=== PATIENT | female | born 1990 | race Caucasian/White ===

== ENCOUNTER 2020-11-23 12:40 | Outpatient (CLI) | payer BC | END 2020-11-23 13:20 | disposition home or self-care (01) | LOC: D.LDO 12:40 | PROVIDERS: ATTEND Student in an Organized Health Care Education/Training Program | DX: O24.419 Gestational diabetes mellitus in pregnancy, unspecified control (principal) ==

== ENCOUNTER 2020-11-29 16:50 | Outpatient (CLI) | payer BC | END 2020-11-29 17:29 | disposition home or self-care (01) | LOC: D.LDO 16:50 | PROVIDERS: ATTEND Obstetrics & Gynecology | DX: O24.419 Gestational diabetes mellitus in pregnancy, unspecified control (principal) ==

== ENCOUNTER 2020-12-03 10:03 | Outpatient (CLI) | payer BC ==
[2020-12-03 11:27] LABS: BILIRUBIN NEGATIVE (NEGATIVE); KETONE NEGATIVE (NEGATIVE); NITRITE NEGATIVE (NEGATIVE); UROBILINOGEN NORMAL mg/dL (< 2)
== END 2020-12-03 12:20 | disposition home or self-care (01) ==
LOC: D.LDO 10:03
PROVIDERS: ATTEND Obstetrics & Gynecology
DX: O35.9XX0 Maternal care for (suspected) fetal abnormality and damage, unspecified, not applicable or unspecified (principal)

== ENCOUNTER → 2020-12-06 19:36 | Outpatient (CLI) | payer BC | END | disposition home or self-care (01) | LOC: D.LDO 19:36 | PROVIDERS: ATTEND Student in an Organized Health Care Education/Training Program | DX: O24.419 Gestational diabetes mellitus in pregnancy, unspecified control (principal) ==

== ENCOUNTER → 2020-12-14 19:45 | Outpatient (CLI) | payer BC | END | disposition home or self-care (01) | LOC: D.LDO 19:45 | PROVIDERS: ATTEND Student in an Organized Health Care Education/Training Program | DX: O24.419 Gestational diabetes mellitus in pregnancy, unspecified control (principal) ==

== ENCOUNTER 2020-12-18 15:52 | Outpatient (CLI) | payer BC | END 2020-12-18 17:10 | disposition home or self-care (01) | LOC: D.LDO 15:52 | PROVIDERS: ATTEND Student in an Organized Health Care Education/Training Program | DX: O26.899 Other specified pregnancy related conditions, unspecified trimester (principal) ==

== ENCOUNTER 2020-12-21 20:10 | Outpatient (CLI) | payer BC | END 2020-12-21 20:45 | disposition home or self-care (01) | LOC: D.LDO 20:10 | PROVIDERS: ATTEND Obstetrics & Gynecology | DX: O24.419 Gestational diabetes mellitus in pregnancy, unspecified control (principal) ==

== ENCOUNTER 2020-12-25 15:06 | Outpatient (CLI) | payer BC | END 2020-12-25 16:18 | disposition home or self-care (01) | LOC: D.LDO 15:06 | PROVIDERS: ATTEND Obstetrics & Gynecology | DX: O24.419 Gestational diabetes mellitus in pregnancy, unspecified control (principal) ==

== ENCOUNTER 2020-12-29 07:40 | Inpatient (IN) | payer BC ==
[~2020-12-29] VITALS: Ht 170.2 cm; Wt 121.6 kg
[2020-12-29 08:36] LABS: HEMATOCRIT 44.1 % (36.0-48.0); HEMOGLOBIN 14.6 g/dL (12-16); MCH 28.3 pg (26.0-34.0); MCHC 33.3 g/dL (31.0-37.0); MEAN PLATELET VOLUME 9.5 fL (7.4-10.4); RBC 5.18 10x6/uL (4.00-5.40); RDW 14.6 % (11.5-14.5)
[2020-12-29 08:53] LABS: UDS - AMPHET NEGATIVE QUAL (NEGATIVE); UDS - BARB NEGATIVE QUAL (NEGATIVE); UDS - BENZO NEGATIVE QUAL (NEGATIVE); UDS - COCAINE NEGATIVE QUAL (NEGATIVE); UDS - OPIATE NEGATIVE QUAL (NEGATIVE); UDS - PCP NEGATIVE QUAL (NEGATIVE); UDS - THC NEGATIVE QUAL (NEGATIVE)
[2020-12-29] MEDS ORDERED: [UNRECOGNIZED DRUG - SUPPLY] (09:58)
[2020-12-29] MEDS ORDERED: GLYBURIDE5 M1 (09:58)
[2020-12-29] MEDS ORDERED: [UNRECOGNIZED DRUG - SUPPLY] (09:59)
--- NOTE | 2020-12-30 12:33 | NUR ---
RUPTURE:1236 BABY:1238 PLACENTA:[id number]
[2020-12-30 18:41] LABS: BASOPHILS 0.3 % (0-2); EOSINOPHILS 0.4 % (0-7); HEMOGLOBIN 11.7 g/dL (12-16); LYMPHOCYTES 11.9 % (15-50); MCH 28.5 pg (26.0-34.0); MCHC 33.4 g/dL (31.0-37.0); MCV 85.4 fL (80.0-100.0); MEAN PLATELET VOLUME 9.9 fL (7.4-10.4); MONOCYTES 5.4 % (2-11); PLATELET COUNT 207 10x3/uL (130-400); RDW 14.6 % (11.5-14.5)
[2020-12-30 18:45] LABS: HEMATOCRIT 34.9 % (36.0-48.0); RBC 4.09 10x6/uL (4.00-5.40); WBC 14.1 10x3/uL (4.8-10.8)
[2020-12-30 19:45] VITALS: BP 118/74
--- NOTE | 2020-12-30 19:45 | NUR ---
PT REC'D IN BED AT THIS TIME. RATES PAIN 5/10 ON PAIN SCALE. IV INFUSING TO THE RT HAND AT 125 ML/HR. SITE CLEAR AND PATENT AT THIS TIME. LUNGS CLEAR. BS+ DENIES FLATUS. DRESSING TO THE ABDOMEN CDI. FUNDUS FIRM AND MIDLINE WITH MODERATE LOCHIA NOTED. SCDS IN PLACE AND FUNCTIONAL. PLAZA CATH PATENT WITH YELLOW URINE NOTED. 1000 ML EMPTIED AT THIS TIME. CALL LIGHT IN PT REACH. NO DISTRESS NOTED. Tara RAM RN
--- NOTE | 2020-12-30 20:45 | NUR ---
PT REC'D IN BED AT THIS TIME. ATTEMPTING TO FEED . NO NEEDS VOICED AT THIS TIME. Tara RAM RN
--- NOTE | 2020-12-30 21:00 | NUR ---
NEW BAG OF PITOCIN UP AT THIS TIME. IV SITE REMIANS PATENT. NO DISTRESS NOTED. Tara RAM RN
--- NOTE | 2020-12-30 22:16 | NUR ---
PT REC'D IN BED AT THIS TIME. INTERMITTENTLY RESTING. DENIES NEEDS AT THIS TIME. Tara RAM RN
[2020-12-31 00:46] VITALS: BP 119/68
--- NOTE | 2020-12-31 00:46 | NUR ---
PT REC'D IN BED AT THIS TIME. VSS. PERICARE PERFORMED. FUNDUS REMAINS FIRM. NO DISTRESS NOTED. Tara RAM RN
--- NOTE | 2020-12-31 02:33 | NUR ---
PT AWAKE. INTERMITTENTLY RESTING. NO NEEDS NOTED AT THIS TIME. Tara RAM RN
[2020-12-31 04:38] VITALS: BP 105/64
--- NOTE | 2020-12-31 04:38 | NUR ---
PT REC'D IN BED AT THIS TIME. VSS. FUNDUS FIRM WITH SMALL LOCHIA. NO DISTRESS NOTED. Tara RAM RN
--- NOTE | 2020-12-31 05:50 | NUR ---
ICE PACK REFILLED. PT GIVEN POPSICLE. NO DISTRESS NOTED. Tara RAM RN
[2020-12-31 07:15] VITALS: BP 130/79
--- NOTE | 2020-12-31 07:15 | NUR ---
PATIENT ASSESSMENT COMPLETED AT BEDSIDE. PATIENT COMPLAINS OF PAIN 5/10 IN ABDOMEN. ALSO COMPLAINS OF FEELING GAS PAIN. PATIENT WITH ABDOMINAL INCISION THAT IS COVERED WITH DRESSING THAT IS CLEAN AND DRY. PLAZA PRESENT DRAINING CLEAR YELLOW URINE. RIGHT HAND PIV PRESENT. PATENT. OXYTOCIN INFUSING AT 125ML PER HOUR. DILUDID PRODUCT PROMOTER RETAIL PET INFUSING ALSO PER SETTING, PLEASE SEE MAR. SCD IN PLACE. SKIN ASSESSMENT COMPLETED. PATIENT FEEDING INFANT AT THIS TIME. FUNDUS FIRM AND MIDLINE U -1. BLEEDING LIGHT. SIDE RAILS UP X2, BED IN LOW POSITION, CALL LIGHT WITHIN REACH. PLAN OF CARE FOR DAY DISCUSSED AT BEDSIDE. PATIENT AND FAMILY DENY QUESTIONS OR CONCERNS.
[2020-12-31 08:08] LABS: BASOPHILS 0.3 % (0-2); HEMATOCRIT 30.7 % (36.0-48.0); HEMOGLOBIN 10.5 g/dL (12-16); LYMPHOCYTES 15.9 % (15-50); MCH 29.1 pg (26.0-34.0); MCHC 34.3 g/dL (31.0-37.0); MCV 84.9 fL (80.0-100.0); MEAN PLATELET VOLUME 9.1 fL (7.4-10.4); MONOCYTES 7.3 % (2-11); NEUTROPHILS 75.5 % (40-80); PLATELET COUNT 183 10x3/uL (130-400); RBC 3.61 10x6/uL (4.00-5.40); RDW 14.8 % (11.5-14.5)
[2020-12-31 08:10] LABS: WBC 10.2 10x3/uL (4.8-10.8)
--- NOTE | 2020-12-31 08:30 | NUR ---
PATIENT SALINE'D LOCKED. PLAZA REMOVED. PATIENT TOLERATED WELL. PLAN OF CARE DISCUSSED WITH PATIENT AT BEDSIDE. INCLUDING WHEN PATIENT WILL AMBULATE. PATIENT AND FAMILY VERBALIZE UNDERSTANDING OF INSTRUCTIONS.
[2020-12-31 09:08] LABS: RAPID PLASMA REAGIN Non Reactive (Non Reactive)
--- NOTE | 2020-12-31 09:10 | NUR ---
PATIENT ASSISTED BY RN TO RESTROOOM. AMBULATED WITH MINIMUAL DIFFICULTY. PATIENT ABLE TO VOID. PERICARE PERFORMED. ABDOMINAL BINDER APPLIED. PATIENT DENIES ANY ADDITIONAL NEEDS AT THIS TIME.
--- NOTE | 2020-12-31 12:01 | NUR ---
PATIENT UP OUT OF BED AMBULATING IN THE HALLWAY WITH AT SIDE WITHOUT DIFFICULTY. COMPLAINS OF SOME GAS PAIN IN LEFT UPPER SHOULDER. RN TO ADDRESS SOON POSSIBLE WITH MEDICATION. PATIENT AND AGREE WITH PLAN.
--- NOTE | 2020-12-31 19:15 | NUR ---
PATIENT REPORT RECEIVED FROM AM SHIFT TO ASSUME PT CARE.
--- NOTE | 2020-12-31 20:30 | NUR ---
PATIENT REQUESTING SOAP, SOAP PROVIDED. NO FURTHER NEEDS IDENTIFIED. WILL CONTINUE TO MONITOR.
[2020-12-31 22:28] VITALS: BP 151/71
--- NOTE | 2020-12-31 22:36 | NUR ---
PT AND MEDICATION SCANNED DURING ADMINISTRATION. SEE EMAR.
--- NOTE | 2020-12-31 22:45 | NUR ---
PAIN MEDICATION ADMINISTERED PER PT REQUEST. PT AND MEDICATION SCANNED, SEE EMAR
--- NOTE | 2020-12-31 23:25 | NUR ---
PATIENT SLEEPING WITH EVEN RESPIRATIONS, SIGNIFICANT OTHER REMAINS AT BEDSIDE FOR SUPPORT. REMAINS AT BEDSIDE IN OPEN CRIB. BED LOCKED IN LOW POSITION, SIDERAILS UPX2, CALL CUEVA AND TRAY TABLE IN REACH. WILL CONTINUE TO MONITOR.
--- NOTE | 2021-01-01 00:22 | NUR ---
DIAPERS AND WIPES PROVIDED. PATIENT . NO OTHER NEEDS IDENTIFIED. WILL CONTINUE TO MONITOR.
--- NOTE | 2021-01-01 01:19 | NUR ---
INFANT IN MOTHERS ARMS, INFANT PLACED IN CRIB AND BROUGHT TO NURSERY PER ROSEY LYNCH RN REQUEST. PT DENIES NEEDS. WILL CONTINUE TO MONITOR
--- NOTE | 2021-01-01 03:11 | NUR ---
MATEUSZRN TO PTS ROOM TO BRING THE BABY BACK FOR . PT DENIES NEEDS AT THIS TIME.
--- NOTE | 2021-01-01 04:20 | NUR ---
PAIN MEDICATION ADMINISTERED PER PT REQUEST AND MD ORDERS. PATIENT AND MEDICATION SCANNED IN [facility] [place], SEE EMAR.
--- NOTE | 2021-01-01 05:43 | NUR ---
PATIENT SLEEPING WITH EVEN RESPIRATIONS. NO DISTRESS NOTED. WILL CONTINUE TO MONITOR.
[2021-01-01 07:15] VITALS: BP 131/72
--- NOTE | 2021-01-01 07:15 | NUR ---
PATIENT ASSESSMENT COMPLETED AT BEDSIDE. PATIENT DENIES PAIN AT THIS TIME. PATIENT HOLDING AND . ABDOMINAL BINDER APPLIED. PATIENT AMBULATING BACK AND FORTH TO RESTROOM, SCD'S OFF AT THIS TIME TO PREVENT FALLS. ABDOMINAL INCISION OPEN TO AIR. CLEAN, DRY AND INTACT. FUNDUS FIRM AND MIDLINE, U -1. SIDE RAILS UP X2, BED IN LOW POSITION, CALL LIGHT WITHIN REACH.
--- NOTE | 2021-01-01 08:32 | NUR ---
PATIENT COMPLAINS OF PAIN 5/10 AT THIS TIME. PATIENT GIVEN PAIN MEDICATION, COLACE AND GAS X. PATIENT STATES SHE BELIEVES SHE WENT TO LONG WITHOUT ANYTHING FOR PAIN AND IS JUST UNCOMFORTABLE. PATIENT SITTING UP ON SIDE ON BED. RN INFORMED PATIENT CONCERNING MORNING GLYBURIDE AND IT'S AVALIBITY AT THIS MOMENT. PATIENT VERBALIZED UNDERSTANDING THAT RN WILL ADMINSTER MEDICATION ONCE RECEIVED FROM PHARMACY. SIDE RAILS UP X2, BED IN LOW POSITION, CALL LIGHT WITHIN REACH.
--- NOTE | 2021-01-01 11:18 | NUR ---
DR. BLACK CALLED CONCERNING PLAN OF CARE. PATIENTS PLAN OF CARE UPDATED VIA PHONE. MD TO COME TO UNIT AROUND 1PM TO DISCHARGE PATIENT. WILL UPDATE PATIENT.
[2021-01-01] MEDS ORDERED: HYDROCODON-ACE1 EA10 PO (13:44)
[2021-01-01] MEDS ORDERED: GLYBURIDE2.5 MG PO (13:45)
[2021-01-01] MEDS ORDERED: IBUPROFEN800 MG PO (13:45)
--- NOTE | 2021-01-01 14:42 | NUR ---
PATIENT GIVEN COPY OF DISCHARGE INSTRUCTIONS, EDUCATION, AND PRESCRIPTIONS. ALL QUESTIONS ANSWERED APPROPRIATELY. PATIENT GIVEN TDAP BEFORE DISCHARGE. PATIENT TOLERATED WELL. NO ADDITIONAL NEEDS NOTED FROM PATIENT. WILL DISCHARGE HOME IN STABLE CONDITION.
--- NOTE | 2021-01-14 12:31 | OP ---
PATIENT NAME: QIANA ANNA MEDICAL RECORD: [id number] :90 LOCATION:[id number] ADMISSION DATE:12/29/20 SURGEON: MUNIR CEBALLOS MD DATE OF OPERATION: 12/30/2020 PREOPERATIVE DIAGNOSES: 1. Term intrauterine at 39 weeks. 2. Suspected macrosomia. 3. Gestational diabetes. POSTOPERATIVE DIAGNOSES: 1. Term intrauterine at 39 weeks. 2. Suspected macrosomia. 3. Gestational diabetes. PROCEDURE: Primary low transverse section. SURGEON: Munir Ceballos M.D. ANESTHESIA: Regional. ESTIMATED BLOOD LOSS: 1000 mL. IV FLUIDS: Per anesthesia record. SPECIMENS: Placenta and cord for gases. COMPLICATIONS: None apparent. FINDINGS: 1. Viable infant, Apgars 9 at 1 and 9 at 5. 2. Placenta delivered manually, intact 3-vessel cord noted. 3. Normal adnexa bilaterally. COMPLICATIONS: None apparent. PROCEDURE: The patient was taken to the operating room where regional anesthesia was achieved without difficulty. The patient was then prepped and draped in normal sterile fashion in the dorsal supine position. A Mjoica catheter had been placed and was draining freely. SCDs were on and functioning normally. Following prep and drape, a Pfannenstiel skin incision was extended down to the underlying subcutaneous fat to the level of the fascia. The fascia was then excised in the midline with scalpel and extended bilaterally using the Mccann scissors. Superior and inferior aspect of the fascial incision was then grasped with Tom clamps times 2, tented upward, and sharply dissected from the underlying rectus muscle using the Bovie cautery and Mccann scissors. Rectus muscles were then bluntly in the midline and the peritoneum entered sharply at the superior aspect of the incision. Peritoneal incision was extended bilaterally using the Metzenbaum scissors. Bladder blade was placed into the pelvis. The bladder flap was created by excising the anterior leaf of the broad ligament across the lower uterine segment. A low transverse incision was made and extended using the Pelosi method. The vertex was delivered atraumatically followed by the body. The was bulb suctioned upon delivery. The cord was clamped x2, cut and the was handed to the awaiting nursery team. Cord is obtained for gases. The placenta was removed OPERATIVE REPORT [id number] BARGEN,QIANA KIESHA manually and intact 3-vessel cord was noted. The uterus was exteriorized, cleared of all clots and debris and vigorously massaged. Good uterine tone was noted. The uterine incision was repaired with 0 Vicryl in a running locked fashion x 2 with good hemostasis noted. Posterior cul-de-sac was then thoroughly irrigated and the uterus was placed into the pelvis anterior cul-de-sac was and thoroughly irrigated and the uterine incision was found to be hemostatic. Counts were correct times 2 for needles, sponges, and instruments. The fascia was then repaired with 0 loop PDS x 1 and the subcutaneous tissue approximated using 0 plain gut suture. The skin was repaired with beny. The patient tolerated the procedure well and was transported to postanesthesia recovery stable without incident. TRANSINT:[id number] Voice Confirmation ID: [id number] DOCUMENT ID: [id number] MUNIR CEBALLOS MD at 1231 CC: [id number] DICTATION DATE: 01/14/21 0335 QUALITY ASSURANCE SUPERVISOR FINAL: 01/14/21 0430 DIS IN 01/01/21 [facility] [address] [place] [address]
== END 2021-01-01 14:53 | disposition home or self-care (01) | DRG 788 ==
LOC: D.LD 07:40
PROVIDERS: ADMIT Obstetrics & Gynecology; ATTEND Obstetrics & Gynecology
PROC: 10D00Z1 Extraction of Products of Conception, Low, Open Approach (ICD-10-PCS; principal; 2020-12-30 12:15)
DX: O36.63X0 Maternal care for excessive fetal growth, third trimester, not applicable or unspecified (principal); Z3A.39 39 weeks gestation of pregnancy; Z37.0 Single live birth; O99.344 Other mental disorders complicating childbirth; F32.9 Major depressive disorder, single episode, unspecified; O99.214 Obesity complicating childbirth; E66.9 Obesity, unspecified; K21.9 Gastro-esophageal reflux disease without esophagitis; O24.429 Gestational diabetes mellitus in childbirth, unspecified control; O62.1 Secondary uterine inertia

== ENCOUNTER → 2021-01-07 09:15 | Outpatient (CLI) | payer BC ==
[~2021-01-07 09:15] MED LIST: GLYBURIDE2.5 MG PO; GLYBURIDE5 M1; HYDROCODON-ACE1 EA10 PO; IBUPROFEN800 MG PO; [UNRECOGNIZED DRUG - SUPPLY]; [UNRECOGNIZED DRUG - SUPPLY]
== END | disposition home or self-care (01) ==
LOC: D.US 09:00
PROVIDERS: ATTEND Obstetrics & Gynecology
DX: M79.605 Pain in left leg (principal)